=== PATIENT | male | born 1995 | race Caucasian/White ===

== ENCOUNTER 2019-04-26 02:38 | Emergency (ER) ==
[2019-04-26 02:46] VITALS: BMI 23.0
[2019-04-26] MEDS ORDERED: SODIUM CHLORIDE 500 ML IV STA (02:49)
[2019-04-26] MEDS ORDERED: ATIVAN IVP STA (02:49)
--- NOTE | 2019-04-26 04:50 | CT ---
EXAM: CT angiogram chest with intravenous contrast 04/26/2019. Multi planar reformatted images obta ined. MIP and three-dimensional reconstructed images provided HISTORY: Chest pain COMPARISON: None. FINDINGS: The heart size appears within normal limits. There is no pericardial effusion. There are no pulmonary arterial filling defects to suggest pulmonary embolus. Lungs appear well aerated. There is no pulmonary consolidation. No pleural effusion or pneumothorax . Limited views of the upper abdomen show no acute abnormality. No acute abnormality of the thoracic aorta. No acute osseous abnormality. IMPRESSION: No pulmonary embolus. No acute cardiopulmonary process.
--- NOTE | 2019-04-26 05:54 | ED.PDOC ---
General ED Provider: Dr. JOJO HOLBROOK-ER Chief Complaint: Chest Pain Stated Complaint: my chest hurts Time Seen by Physician: 02:45 Mode of Arrival: Walk-In Information Source: Patient Exam Limitations: No limitations Nursing and Triage Documentation Reviewed and Agree: Yes Does patient meet sepsis criteria?: No System Inflammatory Response Syndrome: Not Applicable Sepsis Protocol: For patient's 13 years and over: Temp is 96.8 and below OR 101 and greater Pulse >90 BPM Resp >20/minute Acutely Altered Mental Status Are patient's symptoms suggestive of a new infection, such as: -Pneumonia -Skin, Soft Tissue -Endocarditis -UTI -Bone, Joint Infection -Implantable Device -Acute Abdominal Infection -Wound Infection -Meningitis -Blood Stream Catheter Infection -Unknown Cardiovascular Complaint Exam - Palpitations Complaint/Exam Onset/Duration: this am Symptoms Are: Still present Timing: Constant Initial Severity: Mild Current Severity: Mild Character: Reports: Pounding Alleviating: Reports: None Associated Signs and Symptoms: Reports: Chest pain Thyroid Exam: Normal Quality Indicator For Non-Traumatic Chest Pain/Syncope: EKG Performed Review of Systems - Review Of Systems Constitutional: Reports: No symptoms Eyes: Reports: No symptoms Ears, Nose, Mouth, Throat: Reports: No symptoms Respiratory: Reports: No symptoms Cardiac: Reports: Palpitations GI: Reports: No symptoms : Reports: No symptoms Musculoskeletal: Reports: No symptoms Skin: Reports: No symptoms Neurological: Reports: No symptoms Endocrine: Reports: No symptoms Hematologic/Lymphatic: Reports: No symptoms All Other Systems: Reviewed and Negative Past Medical History - Past Medical History Previously Healthy: Yes Endocrine: Reports: Unknown Cardiovascular: Reports: Unknown Respiratory: Reports: Unknown Hematological: Reports: Unknown Gastrointestinal: Reports: Unknown Genitourinary: Reports: Unknown Neuro/Psych: Reports: Unknown Musculoskeletal: Reports: Unknown Cancer: Reports: Unknown - Surgical History General Surgical History: Reports: Unknown - Family History Family History: Reports: Unknown - Social History Smoking Status: Current every day smoker, Heavy tobacco smoker Hx Substance Use: Yes (marijuana) Alcohol Screening: Occasionally - Immunizations Tetanus Shot up to Date: Yes Physical Exam - Physical Exam Appearance: Well-appearing, No pain distress, Well-nourished Eyes: VALENTE ENT: Ears normal, Nose normal, Oropharynx normal Neck: Supple Respiratory: Airway patent, Breath sounds clear, Breath sounds equal, Respirations nonlabored Cardiovascular: RRR GI/: Soft Musculoskeletal: Normal strength, ROM intact, No edema, No calf tenderness Skin: Warm, Dry, Normal color Neurological: Sensation intact, Motor intact, Reflexes intact, Cranial nerves intact, Alert, Oriented Psychiatric: Affect appropriate, Mood appropriate, Anxious Interpretation - Radiology Interpretation Radiology Interpretation By: Radiologist Radiology Results: Negative Exam Interpreted: CT Scan - EKG Interpretation Time of EKG #1: 05:53 Rate: Tachy Rhythm: Sinus Ectopy: None Lockhart: NL ST Segment: Normal Interpretation: sinus tacahy Critical Care Note - Critical Care Note Total Time (mins): 0 Course - Course Hematology/Chemistry: 04/26/19 03:01 04/26/19 03:01 Orders, Labs, Meds: Lab Review 04/26/19 04/26/19 04/26/19 03:01 03:01 03:01 WBC 13.57 H RBC 4.48 L Hgb 14.7 Hct 40.9 L MCV 91.3 MCH 32.8 H MCHC 35.9 H RDW Coeff of Mariaelena 11.9 Plt Count 197 Immature Gran % (Auto) 0.3 Neut % (Auto) 76.2 Lymph % (Auto) 15.0 Noble % (Auto) 7.4 Eos % (Auto) 0.8 Baso % (Auto) 0.3 Immature Gran # (Auto) 0.0 Neut # (Auto) 10.4 H Lymph # (Auto) 2.0 Noble # (Auto) 1.0 Eos # (Auto) 0.1 Baso # (Auto) 0.0 Sodium 136.7 Potassium 3.44 L Chloride 103.7 Carbon Dioxide 19.4 L Anion Gap 17.04 BUN 19.2 Creatinine 0.84 Estimated GFR (MDRD) 115.00 BUN/Creatinine Ratio 22.85 Glucose 115.5 H Calcium 9.71 Total Bilirubin 0.76 AST 30.2 ALT 39.1 Alkaline Phosphatase 63.0 Total Creatine Kinase 154.2 CK-MB (CK-2) 3.790 H CK-MB (CK-2) % 2.4500 Troponin I < 0.012 Total Protein 7.25 Albumin 4.84 Globulin 2.41 Albumin/Globulin Ratio 2.00 TSH 2.070 Free T4 1.59 Urine Color Urine Clarity Urine pH Ur Specific [place] Urine Protein Urine Glucose (UA) Urine Ketones Urine Blood Urine Nitrite Urine Bilirubin Urine Urobilinogen Ur Leukocyte Esterase Urine Microscopic RBC Urine Microscopic WBC Ur Squamous Epith Cells Urine Opiates Screen Ur Oxycodone Screen Urine Methadone Screen Ur Propoxyphene Screen Ur Barbiturates Screen U Tricyclic Antidepress Ur Phencyclidine Scrn Ur Amphetamine Screen U Methamphetamines Scrn U Benzodiazepines Scrn Urine Cocaine Screen U Cannabinoids Screen 04/26/19 04/26/19 03:42 03:42 WBC RBC Hgb Hct MCV MCH MCHC RDW Coeff of Mariaelena Plt Count Immature Gran % (Auto) Neut % (Auto) Lymph % (Auto) Noble % (Auto) Eos % (Auto) Baso % (Auto) Immature Gran # (Auto) Neut # (Auto) Lymph # (Auto) Noble # (Auto) Eos # (Auto) Baso # (Auto) Sodium Potassium Chloride Carbon Dioxide Anion Gap BUN Creatinine Estimated GFR (MDRD) BUN/Creatinine Ratio Glucose Calcium Total Bilirubin AST ALT Alkaline Phosphatase Total Creatine Kinase CK-MB (CK-2) CK-MB (CK-2) % Troponin I Total Protein Albumin Globulin Albumin/Globulin Ratio TSH Free T4 Urine Color Yellow Urine Clarity Clear Urine pH 7.0 Ur Specific [place] <=1.005 Urine Protein Negative Urine Glucose (UA) Negative Urine Ketones Negative Urine Blood 1+ Urine Nitrite Negative Urine Bilirubin Negative Urine Urobilinogen 0.2 Ur Leukocyte Esterase Trace Urine Microscopic RBC 2-5 Urine Microscopic WBC 2-5 Ur Squamous Epith Cells 2-5 Urine Opiates Screen Negative Ur Oxycodone Screen Negative Urine Methadone Screen Negative Ur Propoxyphene Screen Negative Ur Barbiturates Screen Negative U Tricyclic Antidepress Negative Ur Phencyclidine Scrn Negative Ur Amphetamine Screen Positive U Methamphetamines Scrn Negative U Benzodiazepines Scrn Negative Urine Cocaine Screen Negative U Cannabinoids Screen Positive Orders Category Date Time Status EKG-(ED ONLY) Stat CARDIO 04/26/19 02:48 Completed NPO REMINDER: IMAGING ONCE CARE 04/26/19 02:49 Completed Coat Hanger Shaper Machine Operator [ED SCREWDOWN OPERATOR APPLIED] .ONCE EMERGENCY 04/26/19 02:49 Active IV [ED IV/MEDIPORT/POWERPORT] .ONCE EMERGENCY 04/26/19 02:49 Active CBC W/ AUTO DIFF Stat LAB 04/26/19 03:01 Completed COMPREHENSIVE METABOLIC PANEL Stat LAB 04/26/19 03:01 Completed CREATINE KINASE Stat LAB 04/26/19 03:01 Completed FREE T4 (FREE THYROXINE) Stat LAB 04/26/19 03:01 Completed TROPONIN I Stat LAB 04/26/19 03:01 Completed TSH [THYROID STIMULATING HORMONE] Stat LAB 04/26/19 03:01 Completed URINALYSIS C & S IF INDICATED Stat LAB 04/26/19 03:42 Completed URINE DRUG SCREEN (RAPID FOR ED) [DRUG SCREEN, URINE, LAB 04/26/19 03:42 Completed RAPID] Stat 0.9 % Sodium Chloride [Saline Flush] MEDS 04/26/19 02:49 Ordered 1 syr IVF PRN PRN Lorazepam [Ativan] MEDS 04/26/19 02:49 Discontinued 1 mg IVP ONCE STA Sodium Chloride 0.9% [Sodium Chloride] 500 ml MEDS 04/26/19 02:[address] CHEST PE PROTOCOL Stat RADS 04/26/19 02:49 Completed Medications Generic Name Dose Route Start Last Admin Trade Name Freq PRN Reason Stop Dose Admin Sodium Chloride 1 syr 04/26/19 02:49 04/26/19 03:23 Saline Flush IVF 1 syr PRN PRN Administration To flush IV Discontinued Medications Generic Name Dose Route Start Last Admin Trade Name Freq PRN Reason Stop Dose Admin Sodium Chloride 500 mls @ 500 mls/hr 04/26/19 02:49 04/26/19 03:23 Sodium Chloride IV 04/26/19 03:48 500 mls/hr BOLUS STA Administration Lorazepam 1 mg 04/26/19 02:49 04/26/19 03:23 Ativan IVP 04/26/19 02:50 1 mg ONCE STA Administration Vital Signs: Temp Pulse Resp BP Pulse Ox 04/26/19 02:39 97.9 F 119 H 24 151/91 H 100 MANISH Risk Score MANISH Risk Score: Risk Score Odds of by 30D 0 0.1 (0.1-0.2) 1 0.3 (0.2-0.3) 2 0.4 (0.3-0.5) 3 0.7 (0.6-0.9) 4 1.2 (1.0-1.5) 5 2.2 (1.9-2.6) 6 3.0 (2.5-3.6) 7 4.8 (3.8-6.1) Departure - Departure Time of Disposition: 05:53 Disposition: HOME SELF-CARE Discharge Problem: Palpitations Instructions: Heart Palpitations (ED) Condition: Good Pt referred to PMD for follow-up: Yes IPMP verified?: No Additional Instructions: avoid any stimulants in the future Allergies/Adverse Reactions: Allergies No Known Allergies Allergy (Verified 04/26/19 02:46) Home Medications: Ambulatory Orders 1 [No Reported Medications] 11/13/13 Disposition Discussed With: Patient, Family
[2019-04-26 06:02] VITALS: BP 124/72; TEMP 98.1
== END 2019-04-26 06:02 | disposition home or self-care (01) ==
LOC: ED 02:38
DX: R00.2 Palpitations (principal); R07.9 Chest pain, unspecified; F17.210 Nicotine dependence, cigarettes, uncomplicated
CPT/HCPCS: 36415; 80053; 80306; 81001; 82550; 82553; 84439; 84443; 84484; 85025; 93005; 93010; 96361; 96374; 96375; 99283